=== PATIENT | male | born 1955 | race Caucasian/White ===

== ENCOUNTER 2023-06-10 08:19 | Outpatient (CLI) | payer MEDICARE, BC | END 2023-06-10 08:20 | disposition home or self-care (01) | LOC: ULT 08:19 | PROVIDERS: ATTEND Internal Medicine | DX: Z13.6 Encounter for screening for cardiovascular disorders (principal); I77.811 Abdominal aortic ectasia | CPT/HCPCS: 76775 ==

== ENCOUNTER 2024-08-11 07:01 | Outpatient (CLI) | payer MEDICARE | END 2024-08-11 07:02 | disposition home or self-care (01) | LOC: BICULT 07:01 | PROVIDERS: ATTEND Internal Medicine | DX: I77.811 Abdominal aortic ectasia (principal) | CPT/HCPCS: 76775 ==

== ENCOUNTER 2025-08-26 08:04 | Outpatient (CLI) | payer MEDICARE | END 2025-08-26 08:05 | disposition home or self-care (01) | LOC: ULT 08:04 | PROVIDERS: ATTEND Internal Medicine | DX: R74.01 Elevation of levels of liver transaminase levels (principal) | CPT/HCPCS: 76705 ==